=== PATIENT | male | born 1940 | race Caucasian/White ===

== ENCOUNTER 2019-10-18 06:29 | Day surgery (SDC) | payer MEDICARE, BC ==
[2019-10-18] MEDS ORDERED: Sodium Chloride 0.9% 1,000 ML IV SCH (07:00)
[2019-10-18] MEDS ORDERED: fentaNYL 100 MCG/2 ML SDV ONE (07:39)
[2019-10-18] MEDS ORDERED: Propofol 200 MG/20 ML SDV ONE (07:39)
[2019-10-18 09:55] VITALS: BP 106/63; PULSE 52
--- NOTE | 2019-10-18 11:41 | OR ---
DATE OF PROCEDURE: 10/18/2019 SURGEON: Devyn Uribe MD PROCEDURE: Colonoscopy. FINDINGS: 1. Transverse colon polyp, approximately 5 mm, completely removed using hot snare wire device. 2. Transverse colon polyp #2, approximately 5 mm, completely removed using hot snare wire device. COMPLICATIONS: None. [employer]SEM[employer]ER: None. ANESTHESIA: MAC. PREOPERATIVE DIAGNOSIS: History of colon polyps. POSTOPERATIVE DIAGNOSIS: History of colon polyps. RISKS: Risks, benefits, alternatives, and limitations including, but not limited to infection, bleeding, and perforation were explained to the patient, and they wished to proceed. We also discussed cardiovascular surgical risks. PROCEDURE IN DETAIL: The patient was placed in left lateral decubitus position. Digital rectal exam was performed without abnormality. Scope was introduced and advanced atraumatically to the ileocecal valve. A photo was taken of this. Scope was brought back through the ascending, transverse, descending colon, and retroflexed. The aforementioned polyps were identified and completely removed. No diverticulosis, except less than 5 tics were noted. No colitis. No old or new blood. No abnormalities on retroflexion. Greater than 8 minutes was used to remove the scope. The patient tolerated the procedure well. Devyn Uribe MD /[id number]
== END 2019-10-18 10:03 | disposition home or self-care (01) ==
LOC: JP.SDS 06:29
PROVIDERS: ATTEND Surgery
DX: Z12.11 Encounter for screening for malignant neoplasm of colon (principal); D12.3 Benign neoplasm of transverse colon; J45.909 Unspecified asthma, uncomplicated; F17.200 Nicotine dependence, unspecified, uncomplicated; I10 Essential (primary) hypertension; F41.9 Anxiety disorder, unspecified; K21.9 Gastro-esophageal reflux disease without esophagitis; E66.9 Obesity, unspecified; Z86.010 Personal history of colon polyps; Z68.32 Body mass index [BMI] 32.0-32.9, adult
CPT/HCPCS: 45385; J2704; J3010; J7030; 88305

== ENCOUNTER 2024-06-19 20:07 | Emergency (ER) | payer MEDICARE, BC ==
[2024-06-19 20:25] VITALS: BP 187/88; PULSE 74
== END 2024-06-19 21:16 | disposition home or self-care (01) ==
LOC: JP.ED 20:07
DX: K59.00 Constipation, unspecified (principal); I10 Essential (primary) hypertension; J45.909 Unspecified asthma, uncomplicated; Z88.8 Allergy status to other drugs, medicaments and biological substances; Z79.82 Long term (current) use of aspirin; Z79.899 Other long term (current) drug therapy; Z90.49 Acquired absence of other specified parts of digestive tract
CPT/HCPCS: 99283